=== PATIENT | female | born 1980 | race African-American/Black ===

== ENCOUNTER 2017-05-30 10:11 | Emergency (ER) | payer OTHER ==
--- NOTE | 2017-05-30 11:06 | RAD ---
3 VIEWS LEFT FOOT: Date: 05/30/17 COMPARISON: None. HISTORY: Left foot pain. FINDINGS: Three views of the left foot show no evidence of acute fracture or dislocation. No soft tissue swell ing is seen. No degenerative changes are present. IMPRESSION: Unremarkable exam. POS: [facility]
== END 2017-05-30 11:00 | disposition home or self-care (01) ==
LOC: MADERS 10:11
DX: M72.2 Plantar fascial fibromatosis (principal)

== ENCOUNTER 2018-10-17 02:22 | Emergency (ER) | payer OTHER, BC ==
[2018-10-17 02:46] LABS: Bilirubin Negative (Negative); Blood, Urine Negative (Negative); Clarity Clear (Clear); Glucose, Urine (Dipstick) Negative (Negative); Leukocyte Negative (Negative); Nitrite Negative (Negative); Protein, Urine (Dipstick) 30 mg/dL (Neg-Trace); Urobilinogen 0.2 mg/dL (0.2-1.0); pH, Urine 5.5 (5.0-9.0)
[2018-10-17 02:47] LABS: Pregnancy Test - Urine (BHCG) Negative (Negative); Pregu Control Background? CLEAR/WHITE (CLR/WHITE); Pregu Control Bar Appear? YES (CONTROL BAR); Specific Gravity 1.027 (1.002-1.036)
[2018-10-17 02:51] LABS: Specific Gravity, Urine 1.027 (1.002-1.036)
[2018-10-17 02:52] LABS: Bacteria/HPF 1+ HPF (None Seen); RBC/HPF 0-3 HPF (0-3); Squamous Epithelial 0-3 HPF (0-3); WBC/HPF 0-3 HPF (0-3)
[2018-10-17] MEDS ORDERED: cefTRIAXone\\ROCEPHIN 1 GM VIAL ONE (03:07)
[2018-10-17] MEDS ORDERED: Ketorolac Tromethamine 60 MG/2 ML VIAL ONE (03:07)
[2018-10-17] MEDS ORDERED: Lidocaine 2% w/Epinephrine 1:200K 20 ML VIAL ONE (03:07)
[2018-10-17] MEDS ORDERED: Lidocaine 2% 20 ml MDV ONE (03:08)
== END 2018-10-17 03:35 | disposition home or self-care (01) ==
LOC: MADERS 02:22
DX: N39.0 Urinary tract infection, site not specified (principal); J45.909 Unspecified asthma, uncomplicated
CPT/HCPCS: 81001; 81025; 96372; J0696; J1885; J2001